=== PATIENT | male | born 1940 | race Caucasian/White ===

== ENCOUNTER 2017-07-25 08:20 | Inpatient (IN) | payer MEDICARE ==
[2017-07-25] MEDS ORDERED: SUBLIMAZE 100 MCG/2 ML IV ONE (08:30)
[2017-07-25] MEDS ORDERED: LOPRESSOR 5 MG/5 ML INJECTION IV ONE ×3 (08:32→12:21)
[2017-07-25] MEDS ORDERED: SUBLIMAZE 100 MCG/2 ML ONE (08:36)
--- NOTE | 2017-07-25 08:40 | ERPHSYRPT ---
- History of Present Illness Time Seen by Provider: 07/25/17 08:24 Source: patient, EMS Physician History: CC: fall Hx: 76 y/o patient of Dr Moeller is on coumadin and dig for afib. He fell last night around 11:30 while up to get his shower. He was finally able to get back to his chair. EMS was called this AM. He has left rib pain. He has pain in right upper leg which radiates to the testicle. No neck or back pain. Denies head injury. Has occasional nosebleeds. He has swelling. Not short of breath. No abd pain. No N/V. Pain moderate and worse with movement and aching. Timing/Duration: other (last night 11:30PM) Severity: moderate Allergies/Adverse Reactions: No Known Drug Allergies Allergy (Unverified 07/25/17 08:32) Home Medications: Digoxin 0.125 mg Tablet [Lanoxin 0.125MG TABLET] 0.125 mg PO DAILY [History] Lisinopril/Hydrochlorothiazide [Lisinopril-Hctz 10-12.5 mg Tab] 1 each PO DAILY 07/25/17 [History] Metoprolol Succinate 25 mg Xl* [Toprol-Xl 25MG Tablets] 25 mg PO BID [History] Multivit-Min/FA/Lycopen/Lutein [Centrum Silver Men Tablet] 1 each PO DAILY 07/25 [History] Topiramate [Topiramate ER] 150 mg PO TID 07/25/17 [History] Warfarin Sodium 10 mg [Coumadin 10 MG] 10 mg PO DAILY 07/25/17 [History] - Review of Systems Constitutional: Malaise, Weakness, No Fever, No Chills Eyes: No Symptoms Ears, Nose, & Throat: No Symptoms Respiratory: No Cough, No Dyspnea Cardiac: Chest Pain (left ribs), Edema, Syncope (?) Abdominal/Gastrointestinal: No Abdominal Pain, No Nausea, No Vomiting, No Diarrhea Genitourinary Symptoms: Testicle Pain (right), No Dysuria Musculoskeletal: Fall, Injury, Joint Pain (right upper leg), No Back Pain, No Neck Pain Neurological: No Focal Weakness, No Headache, No Parasthesia All Other Systems: Reviewed and Negative - Past Medical History Pertinent Past Medical History: Yes Cardiac History: Arrhythmia (afib), Hypertension - Past Surgical History Past Surgical History: Yes Gastrointestinal: Cholecystectomy - Social History Smoking Status: Former smoker Patient Lives Alone: Yes - Nursing Vital Signs Nursing Vital Signs: Initial Vital Signs Temperature 99.8 F 07/25/17 08:21 Pulse Rate 113 H 07/25/17 08:21 Respiratory Rate 16 07/25/17 08:21 Blood Pressure 133/99 07/25/17 08:21 O2 Sat by Pulse Oximetry 95 07/25/17 08:21 Pain Scale Pain Intensity 3 - Physical Exam General Appearance: alert, other (pleasant man) Eye Exam: PERRL/EOMI Ears, Nose, Throat Exam: other (dry blood on external nares) Neck Exam: normal inspection, non-tender, supple, No midline tenderness Respiratory Exam: normal breath sounds, chest tenderness (left ribs), lungs clear, No respiratory distress Cardiovascular Exam: tachycardia, irregular Gastrointestinal/Abdomen Exam: soft, No tenderness, No distention, No guarding Back Exam: normal inspection, No vertebral tenderness Extremity Exam: pedal edema, tenderness (right upper leg and right knee) Neurologic Exam: alert, oriented x 3, cooperative, 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, sensation nml, No motor deficits Skin Exam: warm, dry SpO2 Interpretation: normal SpO2: 95 Oxygen Delivery: Room Air - Course Nursing assessment & vital signs reviewed: Yes EKG Interpreted by Me: RATE ([id number]), A-fib, Left Colton Deviation, Left Bundle Branch Block Ordered Tests: Active Orders 24 hr Category Date Time Status Clean Catch Urine Specimen STAT Care 07/25/17 08:30 Active EKG-ER Only STAT Care 07/25/17 08:30 Active IV Insertion STAT Care 07/25/17 08:30 Active NPO (ED) STAT Care 07/25/17 08:30 Active Regular Diet Diet 07/25/17 Breakfast Active CHEST 1 VIEW (PORTABLE) Stat Exams 07/25/17 08:30 Completed FEMUR Stat Exams 07/25/17 08:32 Completed HEAD WITHOUT CONTRAST [CT] Stat Exams 07/25/17 08:31 Completed KNEE (3 VIEWS) Stat Exams 07/25/17 08:32 Completed PELVIS (1 OR 2 VIEWS) Stat Exams 07/25/17 08:32 Completed CBC W DIFF Stat Lab 07/25/17 08:45 Completed CK-Creatinine Phosphokinase Stat Lab 07/25/17 08:45 Completed CMP Stat Lab 07/25/17 08:45 Completed MAGNESIUM Stat Lab 07/25/17 08:45 Completed Manual Differential NC Stat Lab 07/25/17 08:45 Completed NT PRO BNP Stat Lab 07/25/17 08:45 Completed PROTIME WITH INR Stat Lab 07/25/17 08:45 Completed TROPONIN Q3H Lab 07/25/17 11:30 Ordered TROPONIN Q3H Lab 07/25/17 14:30 Ordered TROPONIN Q3H Lab 07/25/17 17:30 Ordered TROPONIN Q3H Lab 07/25/17 20:30 Ordered TROPONIN Stat Lab 07/25/17 08:45 Completed UA W/RFX UR CULTURE Stat Lab 07/25/17 09:55 Received Medication Summary Generic Name Dose Route Start Last Admin Trade Name Freq PRN Reason Stop Dose Admin Sodium Chloride 1,000 mls @ 50 mls/hr 07/25/17 08:30 07/25/17 08:42 Sodium Chloride 0.9% 1000 Ml IV 08/24/17 08:29 50 mls/hr .Q20H TRACI Administration Discontinued Medications Generic Name Dose Route Start Last Admin Trade Name Freq PRN Reason Stop Dose Admin Fentanyl Citrate 50 mcg 07/25/17 08:30 07/25/17 08:42 Sublimaze 100 Mcg/2 Ml IV 07/25/17 08:31 50 mcg STAT ONE Administration Fentanyl Citrate Confirm 07/25/17 08:36 Sublimaze 100 Mcg/2 Ml Administered 07/25/17 08:37 Dose 100 mcg .ROUTE .STK-MED ONE Metoprolol Tartrate 5 mg 07/25/17 08:32 07/25/17 08:42 Lopressor 5 Mg/5 Ml Injection IV 07/25/17 08:33 5 mg STAT ONE Administration Metoprolol Tartrate Confirm 07/25/17 08:35 Lopressor 5 Mg/5 Ml Injection Administered 07/25/17 08:36 Dose 5 mg IV .STK-MED ONE Lab/Rad Data: Laboratory Result Diagrams 07/25/17 08:45 07/25/17 08:45 Laboratory Results 07/25/17 07/25/17 07/25/17 Range/Units 08:45 08:45 08:45 WBC (4.0-10.5) K/mm3 RBC (4.1-5.6) M/mm3 Hgb (12.5-18.0) gm/dl Hct (42-50) % MCV (78-100) fl MCH (26-32) pg MCHC (32-36) g/dl RDW (11.5-14.0) % Plt Count (150-450) K/mm3 MPV (6-9.5) fl Absolute Granulocytes (1.4-6.9) Segmented Neutrophils (36.-66.) % Lymphocytes (Manual) (24-44) % Monocytes (Manual) (0.0-12.0) % Eosinophils (Manual) (0.00-3.0) % Platelet Estimate (NORMAL) RBC Morphology PT 27.8 H (8.83-12.87) SECONDS INR 2.48 (0.8-3.0) Sodium (137-145) mmol/L Potassium (3.5-5.1) mmol/L Chloride (98-107) mmol/L Carbon Dioxide (22-30) mmol/L Anion Gap (5-15) MEQ/L BUN (9-20) mg/dL Creatinine (0.66-1.25) mg/dL Estimated GFR ML/MIN Glucose (74-106) mg/dL Calcium (8.4-10.2) mg/dL Magnesium (1.6-2.3) mg/dL Total Bilirubin (0.2-1.3) mg/dL AST (17-59) U/L ALT (0-50) U/L Alkaline Phosphatase (38-126) U/L Creatine Kinase (55-170) U/L Troponin I 0.046 H* (0.000-0.034) ng/mL NT-Pro-B Natriuret Pep (0-1800) pg/mL Serum Total Protein (6.3-8.2) g/dL Albumin (3.5-5.0) g/dL Digoxin 0.4 L (0.8-1.9) ng/mL 18 07/25/17 Range/Units 08:45 08:45 WBC 9.4 (4.0-10.5) K/mm3 RBC 4.25 (4.1-5.6) M/mm3 Hgb 11.5 L (12.5-18.0) gm/dl Hct 36.4 L (42-50) % MCV 85.6 (78-100) fl MCH 27.0 (26-32) pg MCHC 31.6 L (32-36) g/dl RDW 16.8 H (11.5-14.0) % Plt Count 167 (150-450) K/mm3 MPV 10.5 H (6-9.5) fl Absolute Granulocytes 7.81 H (1.4-6.9) Segmented Neutrophils 86 H (36.-66.) % Lymphocytes (Manual) 9 L (24-44) % Monocytes (Manual) 4 (0.0-12.0) % Eosinophils (Manual) 1 (0.00-3.0) % Platelet Estimate NORMAL (NORMAL) RBC Morphology NORMAL PT (8.83-12.87) SECONDS INR (0.8-3.0) Sodium 139 (137-145) mmol/L Potassium 3.6 (3.5-5.1) mmol/L Chloride 104 (98-107) mmol/L Carbon Dioxide 23 (22-30) mmol/L Anion Gap 15.6 H (5-15) MEQ/L BUN 14 (9-20) mg/dL Creatinine 0.83 (0.66-1.25) mg/dL Estimated GFR > 60.0 ML/MIN Glucose 122 H (74-106) mg/dL Calcium 9.5 (8.4-10.2) mg/dL Magnesium 2.0 (1.6-2.3) mg/dL Total Bilirubin 1.00 (0.2-1.3) mg/dL AST 30 (17-59) U/L ALT 18 (0-50) U/L Alkaline Phosphatase 83 (38-126) U/L Creatine Kinase 550 H (55-170) U/L Troponin I (0.000-0.034) ng/mL NT-Pro-B Natriuret Pep 848 (0-1800) pg/mL Serum Total Protein 7.4 (6.3-8.2) g/dL Albumin 3.9 (3.5-5.0) g/dL Digoxin (0.8-1.9) ng/mL - Progress Progress Note: 07/25/17 08:41 He atrial fibrillation with RVR. Has not taken AM dig or metoprolol. Will given IV metoprolol. Check labs, xrays, and CT to rule out ICH. 07/25/17 09:51 CT head: Nonacute senile brain. Pelvis: Single AP pelvis demonstrates osteopenia, mild degenerative changes of both hips/lower lumbar spine, and scattered vascular calcifications. No other bony, articular, or soft tissue abnormalities. Knee: 3 views of the right knee demonstrates osteopenia and moderate tricompartmental degenerative changes. No other bony, articular, or soft tissue abnormalities. Femur: 2 views of the right femur demonstrates mild osteopenia, hip/knee degenerative changes, and faint vascular calcifications. No other bony, articular, or soft tissue abnormalities. cxr: Nonacute chest with chronic features. 07/25/17 10:43 NIH 4 due to decreased use of the right leg. Not sure if this is from stroke event or pain. No fx identified as yet. He is not a TPA candidate as he is on coumadin. PAssed swallow test and is eating a breakfast tray. Daughter at bedside. Called Dr Peters (oc) and will place in tele obs, recheck troponin and CK, and consult neuro. Discussed with .: Lorraine Will see patient in: hospital (observation) Counseled pt/family regarding: lab results, diagnosis, need for follow-up, rad results - Departure Time of Disposition: 10:44 Departure Disposition: Observation (Tele) Clinical Impression: Fall from standing, Atrial fibrillation with RVR, Elevated troponin, right leg pain and weakness Condition: Fair Critical Care Time: No Referrals: ZULEYMA MOELLER [Primary Care Provider] -
[2017-07-25] MEDS: Sodium Chloride 0.9% 1000 ML 1,000 ML IV SCH ×3 (08:42→20:26)
[2017-07-25 08:54] LABS: Granulocyte Absolute (ANC) 7.81 (1.4-6.9); Hematocrit 36.4 % (42-50); Hemoglobin 11.5 gm/dl (12.5-18.0); Mean Cell Volume 85.6 fl (78-100); Mean Corpuscular Hgb Concent. 31.6 g/dl (32-36); Mean Platelet Volume 10.5 fl (6-9.5); Platelet Count 167 K/mm3 (150-450); Red Blood Count 4.25 M/mm3 (4.1-5.6); Red Cell Distribution Width 16.8 % (11.5-14.0); White Blood Count 9.4 K/mm3 (4.0-10.5)
[2017-07-25 08:56] LABS: INR 2.48 (0.8-3.0)
[2017-07-25 09:19] LABS: ALBUMIN 3.9 g/dL (3.5-5.0); ALKALINE PHOSPHATASE 83 U/L (38-126); ANION GAP 15.6 MEQ/L (5-15); BLOOD UREA NITROGEN 14 mg/dL (9-20); CHLORIDE 104 mmol/L (98-107); CK-Creatinine Phosphokinase 550 U/L (55-170); Calcium 9.5 mg/dL (8.4-10.2); Carbon Dioxide 23 mmol/L (22-30); Creatinine 1 0.83 mg/dL (0.66-1.25); Glucose 122 mg/dL (74-106); Potassium 3.6 mmol/L (3.5-5.1); SGOT/AST 30 U/L (17-59); SGPT/ALT 18 U/L (0-50); SODIUM 139 mmol/L (137-145); Total Protein 7.4 g/dL (6.3-8.2)
[2017-07-25 09:27] LABS: NT PRO BNP 848 pg/mL (0-1800)
[2017-07-25 09:37] LABS: Eosinophil 1 % (0.00-3.0); Lymphocytes 9 % (24-44); Monocyte 4 % (0.0-12.0); Neutrophils 86 % (36.-66.); Platelet Estimate NORMAL (NORMAL); Total Cells Counted 100
--- NOTE | 2017-07-25 09:37 | XRAY ---
Indication: Status post fall. Coumadin therapy. Multiple contiguous axial images obtained through the head without contrast. Comparison: None Age-appropriate global atrophy and mild periventricular degenerative micro-ischemia bilaterally. No acute intracranial hemorrhage, abnormal extra-axial fluid collection, or mass effect. Fourth ventricle is midline without hydrocephalus. Bony calvarium intact. Visualized paranasal sinuses and mastoid air cells are clear. Impression: Nonacute senile brain. CTDI 67.41
--- NOTE | 2017-07-25 09:41 | XRAY ---
Indication: Pain following fall. Comparison: None Single AP pelvis demonstrates osteopenia, mild degenerative changes of both hips/lower lumbar spine, and scattered vascular calcifications. No other bony, articular, or soft tissue abnormalities.
--- NOTE | 2017-07-25 09:41 | XRAY ---
Indication: Pain following fall. Comparison: None 2 views of the right femur demonstrates mild osteopenia, hip/knee degenerative changes, and faint vascular calcifications. No other bony, articular, or soft tissue abnormalities.
--- NOTE | 2017-07-25 09:43 | XRAY ---
Indication: Pain following fall. Comparison: None 3 views of the right knee demonstrates osteopenia and moderate tricompartmental degenerative changes. No other bony, articular, or soft tissue abnormalities.
--- NOTE | 2017-07-25 09:45 | XRAY ---
Indication: Left-sided pain following fall. Comparison: None Portable chest is clear with incidental scattered calcified granulomas. Heart is borderline enlarged. Vascularity normal. Bony thorax intact with osteopenia, mild degenerative changes, and old right 7th rib fracture. Impression: Nonacute chest with chronic features.
[2017-07-25 11:08] LABS: Appearance HAZY (CLEAR); Bilirubin NEGATIVE (NEGATIVE); Blood 50 Ery/ul (0-5); Glucose NEGATIVE (NEGATIVE); Ketones NEGATIVE (NEGATIVE); Leukocyte Esterase NEGATIVE (NEGATIVE); Nitrite NEGATIVE (NEGATIVE); Protein,Urine Dip 30 (Negative); Urobilinogen NORMAL mg/dL (0-1)
[2017-07-25 11:09] LABS: Bacteria RARE /HPF (NEGATIVE); Epithelial Cells RARE /HPF (FEW); Hyaline Casts 0-2 /LPF (0-2); WBC 0-2 /HPF (0-5)
[2017-07-25] MEDS ORDERED: TYLENOL 325 MG PO PRN (11:17)
[2017-07-25 12:14] LABS: TROPONIN 0.05 ng/mL (0.000-0.034)
[2017-07-25] MEDS: Zestril 10 MG PO SCH ×2 (13:50→13:51)
[2017-07-25] MEDS: Lanoxin 0.125MG TABLET PO SCH (13:50)
[2017-07-25] MEDS: Toprol-Xl 25MG Tablets PO SCH ×2 (13:50→21:17)
[2017-07-25] MEDS: hydroDIURIL 25 MG PO SCH (13:51)
[2017-07-25] MEDS ORDERED: TOPIRAMATE 150 MG PO SCH (15:00)
[2017-07-25] MEDS: Topamax 100 MG PO SCH ×2 (15:51→21:17)
--- NOTE | 2017-07-25 15:57 | PCM.HP ---
History of Present Illness - Chief Complaint Chief Complaint: fall History of Present Illness: is a 76 year old male pt of Dr. Moeller in [place]. He's been c/o R leg pain, from the knee to the groin, for . Last night he went to the bathroom, turned then lost feeling in his R leg and collapsed. He drug himself on his stomach to the living room where he laid for about 2 hours. Then he pulled himself up onto the recliner and waited until 7 am to call his daughter. She came over to turn off the coffee pot and call the ambulance. Pt states when he first came in to the hospital he could not move his R foot, but now he can. PT did get him up to stand with assistance. With palpation the pain is currently about a 5/10. When he was standing on the leg the pain was much more (pt unable to give me a number). On admission pt's HR was elevated in the 130s. He religiously takes his metoprolol and digoxin but he was unable to take them this morning. He was given 5mg IV metoprolol in the ER and 5mg again on the floor, along with his home med late this morning. Currently his HR is in the 80s. After admission he had a small bump in troponin but the last number is trending down. CK was minimally elevated but also trending down. - Review of Systems Cardiac: Other (pain in L anterior ribs with moving in the bed. states he hit them when he fell) Genitourinary Symptoms: Hesitancy (longterm) Musculoskeletal: Arthralgias, Joint Pain (chronic L and R knee pain) Neurological: Focal Weakness, Parasthesia (numbness in RLE with fall) Psychological: No Depression, No Suicidal Ideations All Other Systems: Reviewed and Negative Medications & Allergies Home Medications: Home Medication List Digoxin 0.125 mg Tablet [Lanoxin 0.125MG TABLET] 0.125 mg PO DAILY [History Confirmed 07/25/17] Lisinopril/Hydrochlorothiazide [Lisinopril-Hctz 10-12.5 mg Tab] 1 each PO DAILY 07/25/17 [History Confirmed 07/25/17] Metoprolol Succinate 25 mg Xl* [Toprol-Xl 25MG Tablets] 25 mg PO BID [History Confirmed 07/25/17] Multivit-Min/FA/Lycopen/Lutein [Centrum Silver Men Tablet] 1 each PO DAILY 07/25 [History Confirmed 07/25/17] Topiramate [Topiramate ER] 150 mg PO TID 07/25/17 [History Confirmed 07/25/17] Warfarin Sodium 10 mg [Coumadin 10 MG] 10 mg PO DAILY 07/25/17 [History Confirmed 07/25/17] Allergies/Adverse Reactions: Allergies Allergy/AdvReac Type Severity Reaction Status Date / Time No Known Drug Allergies Allergy Unverified 07/25/17 08:32 - Past Medical History Past Medical History: Yes ENT History: Cataracts Cardiac History: Arrhythmia, Hypertension GI Medical History: Gallbladder Disease History: Other - Past Surgical History Past Surgical History: Yes GI Surgical History: Cholecystectomy Musculskeletal Surgical Hx: Orthopedic Surgery - Social History Smoking Status: Former smoker Exposure to second hand smoke: No Alcohol: None Drug Use: none - Physical Exam Vital Signs: Vital Signs - 24 hr Temp Pulse Resp BP BP Pulse Ox 07/25/17 13:50 91 H 129/67 07/25/17 12:01 99.8 F 101 H 125/81 95 07/25/17 10:45 95 07/25/17 10:31 101 H 18 125/81 96 07/25/17 09:43 78 16 120/67 96 07/25/17 08:21 99.8 F 113 H 16 133/99 95 General Appearance: no apparent distress, alert Neurologic Exam: oriented x 3, cooperative, other (active motion bilat feet. motion in RLE limited d/t knee pain) Eye Exam: eyes nml inspection Ears, Nose, Throat Exam: moist mucous membranes Neck Exam: normal inspection, non-tender, supple, No lymphadenopathy Respiratory Exam: normal breath sounds, lungs clear, No crackles/rales, No rhonchi, No wheezing Cardiovascular Exam: regular rate/rhythm, normal heart sounds, No murmur Gastrointestinal/Abdomen Exam: soft, normal bowel sounds, distention (mild), No tenderness, No mass, No guarding Back Exam: normal inspection, No CVA tenderness Extremity Exam: other (R knee generalized edema just superior to knee with tenderness to palpation. nttp along medial and lateral joint lines.), No pedal edema Skin Exam: normal color, warm, dry, No rash Results - Labs Lab/Micro Results: Lab Results-Last 24 Hours 07/25/17 07/25/17 Range/Units 11:31 14:30 Creatine Kinase 518 H (55-170) U/L Troponin I 0.050 H* 0.043 H* (0.000-0.034) ng/mL Assessment/Plan (1) Leg pain Current Visit: Yes Status: Acute Qualifiers: Laterality: right Qualified Code(s): M79.604 - Pain in right leg Assessment & Plan: Xrays wnl. Will check MRI lumbar spine. PT consulted on pt. This has improved since admission. Pt needs to be able to walk in order to d/c home and he agrees. (2) Paresthesia of right leg Current Visit: Yes Status: Acute Assessment & Plan: MRI to be done, likely tomorrow morning. Teleneurology consult ordered for after MRI. Code(s): R20.2 - PARESTHESIA OF SKIN (3) Tremor Current Visit: Yes Status: Acute Assessment & Plan: Chronic; sees Dr. Roldan yearly and Parkinson's has been ruled out. Code(s): R25.1 - TREMOR, UNSPECIFIED (4) Atrial fibrillation with RVR Current Visit: Yes Status: Acute Assessment & Plan: Sees cardiology group at [place] (down from [place]) regularly. With 2 doses IV metoprolol and back on home meds, his rate is controlled. Code(s): I48.91 - UNSPECIFIED ATRIAL FIBRILLATION (5) Elevated troponin Current Visit: Yes Status: Acute Assessment & Plan: Small bump after admission, likely due to the RVR (or possibly related to lying on the ground for several hours). Code(s): R74.8 - ABNORMAL LEVELS OF OTHER SERUM ENZYMES (6) Fall from standing Current Visit: Yes Status: Acute Qualifiers: Encounter type: initial encounter Qualified Code(s): W19.XXXA - Unspecified fall, initial encounter Code(s): W19.XXXA - UNSPECIFIED FALL, INITIAL ENCOUNTER
[2017-07-25] MEDS ORDERED: Coumadin 10 MG PO SCH (18:00)
[2017-07-26 05:57] LABS: Granulocyte Absolute (ANC) 4.69 (1.4-6.9); Hematocrit 34.3 % (42-50); Hemoglobin 10.8 gm/dl (12.5-18.0); Mean Cell Volume 86.6 fl (78-100); Mean Corpuscular Hgb Concent. 31.5 g/dl (32-36); Mean Platelet Volume 10.7 fl (6-9.5); Platelet Count 147 K/mm3 (150-450); Red Blood Count 3.96 M/mm3 (4.1-5.6); Red Cell Distribution Width 17.1 % (11.5-14.0); White Blood Count 6.5 K/mm3 (4.0-10.5)
[2017-07-26 06:00] LABS: Mean Corpuscular Hemoglobin 27.2 pg (26-32)
[2017-07-26 06:18] LABS: ALBUMIN 3.5 g/dL (3.5-5.0); ALKALINE PHOSPHATASE 75 U/L (38-126); BLOOD UREA NITROGEN 13 mg/dL (9-20); CHLORIDE 108 mmol/L (98-107); CK-Creatinine Phosphokinase 516 U/L (55-170); Calcium 8.8 mg/dL (8.4-10.2); Carbon Dioxide 20 mmol/L (22-30); Creatinine 1 0.76 mg/dL (0.66-1.25); Glucose 98 mg/dL (74-106); Potassium 3.7 mmol/L (3.5-5.1); SGOT/AST 31 U/L (17-59); SGPT/ALT 16 U/L (0-50); SODIUM 137 mmol/L (137-145); Total Protein 6.6 g/dL (6.3-8.2)
[2017-07-26] MEDS: Sodium Chloride 0.9% 1000 ML 1,000 ML IV SCH (06:30)
[2017-07-26 06:54] LABS: Eosinophil 3 % (0.00-3.0); Lymphocytes 15 % (24-44); Monocyte 9 % (0.0-12.0); Neutrophils 73 % (36.-66.); Platelet Estimate NORMAL (NORMAL); Total Cells Counted 100
--- NOTE | 2017-07-26 08:58 | PCM.NOTE ---
Date and Time: 07/26/17 0856 Subjective Assessment: patient reports improvement, able to lift the right leg today and wasn't initially. denies chest pain or shortness of breath. scheduled for MRI l-spine this am. Objective Exam General Appearance: no apparent distress, alert Neurologic Exam: other (mild weakness to right leg, strength 4/5) Respiratory Exam: normal breath sounds, lungs clear, No respiratory distress Cardiovascular Exam: regular rate/rhythm Gastrointestinal/Abdomen Exam: soft, No tenderness, No mass OBJECTIVE DATA Vital Signs: Vital Signs - 24 hr Temp Pulse Resp BP BP Pulse Ox 07/26/17 07:05 97.8 F 74 20 130/78 95 07/26/17 04:00 98.4 F 72 18 106/57 97 07/26/17 00:00 98.0 F 72 20 114/58 96 07/25/17 19:55 99.2 F 76 18 121/67 96 07/25/17 16:00 99.2 F 92 H 18 143/71 96 07/25/17 13:50 91 H 129/67 07/25/17 12:01 99.8 F 101 H 125/81 95 07/25/17 10:45 95 07/25/17 10:31 101 H 18 125/81 96 07/25/17 09:43 78 16 120/67 96 Oxygen-Last 24 hours O2 Percentage 4 Liters = 36% Pain Assessment - Last Documented Pain Intensity 3 Pain Scale Used 0-10 Pain Scale Intake and Output: Intake & Output 07/23/17 07/24/17 07/25/17 07/26/17 11:59 11:59 11:59 11:59 Intake Total 2831 Output Total 1080 Balance 1751 Weight 93.44 kg Lab Results: Lab Results-Last 24 Hours 07/25/17 07/25/17 07/25/17 Range/Units 11:31 14:30 17:45 WBC (4.0-10.5) K/mm3 RBC (4.1-5.6) M/mm3 Hgb (12.5-18.0) gm/dl Hct (42-50) % MCV (78-100) fl MCH (26-32) pg MCHC (32-36) g/dl RDW (11.5-14.0) % Plt Count (150-450) K/mm3 MPV (6-9.5) fl Absolute Granulocytes (1.4-6.9) Segmented Neutrophils (36.-66.) % Lymphocytes (Manual) (24-44) % Monocytes (Manual) (0.0-12.0) % Eosinophils (Manual) (0.00-3.0) % Platelet Estimate (NORMAL) RBC Morphology Sodium (137-145) mmol/L Potassium (3.5-5.1) mmol/L Chloride (98-107) mmol/L Carbon Dioxide (22-30) mmol/L Anion Gap (5-15) MEQ/L BUN (9-20) mg/dL Creatinine (0.66-1.25) mg/dL Estimated GFR ML/MIN Glucose (74-106) mg/dL Calcium (8.4-10.2) mg/dL Total Bilirubin (0.2-1.3) mg/dL AST (17-59) U/L ALT (0-50) U/L Alkaline Phosphatase (38-126) U/L Creatine Kinase 518 H (55-170) U/L Troponin I 0.050 H* 0.043 H* 0.043 H* (0.000-0.034) ng/mL Serum Total Protein (6.3-8.2) g/dL Albumin (3.5-5.0) g/dL 07/25/17 07/26/17 07/26/17 Range/Units 20:15 05:35 05:35 WBC 6.5 (4.0-10.5) K/mm3 RBC 3.96 L (4.1-5.6) M/mm3 Hgb 10.8 L (12.5-18.0) gm/dl Hct 34.3 L (42-50) % MCV 86.6 (78-100) fl MCH 27.2 (26-32) pg MCHC 31.5 L (32-36) g/dl RDW 17.1 H (11.5-14.0) % Plt Count 147 L (150-450) K/mm3 MPV 10.7 H (6-9.5) fl Absolute Granulocytes 4.69 (1.4-6.9) Segmented Neutrophils 73 H (36.-66.) % Lymphocytes (Manual) 15 L (24-44) % Monocytes (Manual) 9 (0.0-12.0) % Eosinophils (Manual) 3 (0.00-3.0) % Platelet Estimate NORMAL (NORMAL) RBC Morphology NORMAL Sodium 137 (137-145) mmol/L Potassium 3.7 (3.5-5.1) mmol/L Chloride 108 H (98-107) mmol/L Carbon Dioxide 20 L (22-30) mmol/L Anion Gap 13.0 (5-15) MEQ/L BUN 13 (9-20) mg/dL Creatinine 0.76 (0.66-1.25) mg/dL Estimated GFR > 60.0 ML/MIN Glucose 98 (74-106) mg/dL Calcium 8.8 (8.4-10.2) mg/dL Total Bilirubin 0.70 (0.2-1.3) mg/dL AST 31 (17-59) U/L ALT 16 (0-50) U/L Alkaline Phosphatase 75 (38-126) U/L Creatine Kinase 516 H (55-170) U/L Troponin I 0.043 H* (0.000-0.034) ng/mL Serum Total Protein 6.6 (6.3-8.2) g/dL Albumin 3.5 (3.5-5.0) g/dL 07/26/17 Range/Units 05:35 WBC (4.0-10.5) K/mm3 RBC (4.1-5.6) M/mm3 Hgb (12.5-18.0) gm/dl Hct (42-50) % MCV (78-100) fl MCH (26-32) pg MCHC (32-36) g/dl RDW (11.5-14.0) % Plt Count (150-450) K/mm3 MPV (6-9.5) fl Absolute Granulocytes (1.4-6.9) Segmented Neutrophils (36.-66.) % Lymphocytes (Manual) (24-44) % Monocytes (Manual) (0.0-12.0) % Eosinophils (Manual) (0.00-3.0) % Platelet Estimate (NORMAL) RBC Morphology Sodium (137-145) mmol/L Potassium (3.5-5.1) mmol/L Chloride (98-107) mmol/L Carbon Dioxide (22-30) mmol/L Anion Gap (5-15) MEQ/L BUN (9-20) mg/dL Creatinine (0.66-1.25) mg/dL Estimated GFR ML/MIN Glucose (74-106) mg/dL Calcium (8.4-10.2) mg/dL Total Bilirubin (0.2-1.3) mg/dL AST (17-59) U/L ALT (0-50) U/L Alkaline Phosphatase (38-126) U/L Creatine Kinase (55-170) U/L Troponin I 0.031 (0.000-0.034) ng/mL Serum Total Protein (6.3-8.2) g/dL Albumin (3.5-5.0) g/dL Radiology Exams: Radiology Procedures Category Date Time Status MRI L-SPINE WITHOUT CONTRAST [MRI] Routine Exams 07/26/17 16:02 Ordered Assessment/Plan (1) Paresthesia of right leg Current Visit: Yes Status: Acute Assessment & Plan: MRI L-spine pending, will get up out of bed and attempt to ambulate this am and see how he does. if MRI shows nothing acute and able to ambulate may be able to discharge later today or tomorrow. if unable to ambulate may need to consider rehab stay Code(s): R20.2 - PARESTHESIA OF SKIN (2) Atrial fibrillation with RVR Current Visit: Yes Status: Acute Assessment & Plan: rate controlled at this time Code(s): I48.91 - UNSPECIFIED ATRIAL FIBRILLATION (3) Fall from standing Current Visit: Yes Status: Acute Qualifiers: Encounter type: initial encounter Qualified Code(s): W19.XXXA - Unspecified fall, initial encounter Code(s): W19.XXXA - UNSPECIFIED FALL, INITIAL ENCOUNTER (4) Leg pain Current Visit: Yes Status: Acute Qualifiers: Laterality: right Qualified Code(s): M79.604 - Pain in right leg
[2017-07-26] MEDS ORDERED: NON-FORMULARY ITEM (Lisinopril/Hydrochlorothiazide [Lisinopril-Hctz 10-12.5 Mg Tab] 1 EACH PO SCH (10:00)
[2017-07-26] MEDS: Lanoxin 0.125MG TABLET PO SCH (10:19)
[2017-07-26] MEDS: Topamax 100 MG PO SCH (10:20)
[2017-07-26] MEDS: Toprol-Xl 25MG Tablets PO SCH (10:20)
[2017-07-26] MEDS: hydroDIURIL 25 MG PO SCH (10:20)
[2017-07-26] MEDS: Zestril 10 MG PO SCH (10:20)
--- NOTE | 2017-07-26 10:33 | XRAY ---
Indication: Right leg weakness. Status post fall. Sagittal and axial MRI lumbar spine performed without contrast using T1 and T2 weighted sequences. Comparison: None No prior lumbar exams for counting purposes. 5 lumbar segments will be assumed. Sagittal MRI images demonstrates normal lumbar lordosis with mild levoscoliosis centered at L3. Multilevel degenerative disc desiccation signal with mild L3-L4 disc space narrowing. T10-L2 vertebral hemangiomas. No acute fracture, subluxation, or abnormal bone marrow signal. Conus medullaris terminates at the inferior L1 level. Sagittal images through the T12-L2 levels are unremarkable. Axial images at the L2-L3 level demonstrates minimal annular disc bulge minimally effacing the thecal sac and producing minimal bilateral foraminal narrowing. No disc herniation or canal stenosis. Mild bilateral degenerative facet and ligament flavum hypertrophy. At the L3-L4 level, there is bilateral foraminal narrowing due to mild broad-based disc bulge. No central disc herniation or canal stenosis. Mild bilateral degenerative facet and ligament flavum hypertrophy. At the L4-L5 level, there is mild annular disc bulge minimally effacing the thecal sac and producing mild bilateral foraminal stenosis without exiting nerve root impingement.. No disc herniation or canal stenosis. Moderate bilateral degenerative facet hypertrophy. At the L5-S1 level, there is left foraminal stenosis with minimal exiting L5 nerve root impingement due to broad-based disc bulge. No disc herniation or canal stenosis. Moderate bilateral degenerative facet hypertrophy. Partially visualized bilateral renal cysts, largest on the left measuring 2.6 cm. Impression: 1. Multilevel degenerative disc disease detailed level by level and mild levoscoliosis. 2. Remaining MRI lumbar spine negative for disc herniation or spinal canal stenosis. 3. T10-L1 vertebral hemangiomas. 4. Partially visualized bilateral renal cysts.
[2017-07-26 12:20] VITALS: BP 109/57; PULSE 78; O2SAT 97
--- NOTE | 2017-07-30 13:38 | DS ---
ADMISSION DIAGNOSES: 1) Right leg pain. 2) Paresthesia of right leg. 3) Tremors. 4) Atrial fibrillation with rapid ventricular response. 5) Elevated troponin. DISCHARGE DIAGNOSES: 1) RIGHT LEG PAIN. 2) PARESTHESIA OF RIGHT LEG. 3) TREMORS. 4) ATRIAL FIBRILLATION WITH RAPID VENTRICULAR RESPONSE. 5) ELEVATED TROPONIN. HOSPITAL COURSE: This is a 76 year-old male patient who normally sees Dr. Lino Moeller as part of the [facility] system. He was admitted by Dr. Peters on 07/25/2017 with complaints of right leg pain and paresthesia in the right leg. He was apparently weak in the leg and unable to walk yesterday. When he came in he had a chronic tremor for which he sees Dr. Roldan on a regular basis and treated. He also has a history of atrial fibrillation and sees care group in [place]. He was given IV metoprolol due to atrial fibrillation with rapid ventricular rate on admission and then resumed on his home medications. His rate has been controlled. He was prescribed digoxin 0.125 mg daily as well as metoprolol succinate 25 mg daily. He is also on Coumadin in which he was also continued. He had a head CT on arrival which showed a nonacute senile brain with nothing acute. He did have lumbar spine MRI which showed some degenerative changes on 07/26/2017. He felt as though he was back to his baseline and was able to ambulate to and from his bathroom without any difficulty. He requested discharge on 07/26/2017 after the MRI was conducted and expressed a desire to do some therapy due to recent falls at [facility] which is being coordinated upon discharge. DISCHARGE EXAM: He is alert and in no apparent distress. VITAL SIGNS: Temperature 98F, pulse 78, respiratory rate 20, blood pressure 109/57. Oxygen saturations 97% on room air. International normalized ratio on arrival was 2.48. HEART: Irregularly irregular with rate controlled. NEUROLOGIC: Cranial nerves II-XII were intact. No gross deficits to bilateral upper extremity, had some mild weakness to right lower extremity which is essentially symmetrical, left lower extremity has some mild weakness and deconditioning. Sensation appears to be intact. Knee jerk is 1 to 2+ bilateral lower extremities. SKIN: He has no skin changes. ASSESSMENT: 1) Right leg pain and weakness. Work up has been negative. The patient is ambulatory and seem to be doing well at this time. I recommend that he has therapy upon discharge as requested at [facility] and have him follow up with his neurologist, Dr. Roldan, for further evaluation. Transient ischemic attack is certainly in the differential at this time. He is therapeutic on his international normalized ratio with his history of atrial fibrillation. 2) Atrial fibrillation with rapid ventricular response: His rate is well controlled on his home medications. I have made no change to his digoxin or his anticoagulant and continue Toprol for rate control and he can follow up with cardiology. 3) Elevation of troponin: He had minimally elevated troponin on arrival 0.046 and repeat was 0.031. He has had no chest pain or shortness of breath complaints during his stay so this is likely attributable to his rapid ventricular response on arrival and this resolved nicely. DISCHARGE MEDICATIONS: Digoxin 0.125 mg daily, lisinopril/hydrochlorothiazide 10/12.5 mg daily, Toprol XL 25 mg p.o. b.i.d., multivitamin, topiramate 150 mg p.o. t.i.d. and warfarin 10 mg daily. DISCHARGE FOLLOW UP: He is instructed to follow up with Dr. Moeller as well as Dr. Roldan and the care group for cardiology.
== END 2017-07-26 13:27 | disposition home or self-care (01) | DRG 556 ==
LOC: ED 08:20 → MED SURG 11:05 → OBSVTOIN 15:52
PROVIDERS: ADMIT Family Medicine; ATTEND Family Medicine
DX: M79.604 Pain in right leg (principal); R20.2 Paresthesia of skin; R25.1 Tremor, unspecified; W19.XXXA Unspecified fall, initial encounter; I48.91 Unspecified atrial fibrillation; R74.8 Abnormal levels of other serum enzymes; M25.562 Pain in left knee; M25.561 Pain in right knee; G89.29 Other chronic pain; F45.42 Pain disorder with related psychological factors; Z79.01 Long term (current) use of anticoagulants; K82.9 Disease of gallbladder, unspecified; Z74.8 Other problems related to care provider dependency; R53.1 Weakness; I10 Essential (primary) hypertension; M85.80 Other specified disorders of bone density and structure, unspecified site; Z79.899 Other long term (current) drug therapy; Z72.0 Tobacco use
CPT/HCPCS: 36415; 70450; 71045; 72148; 72170; 73552; 73562; 80053; 80162; 81000; 82550; 83735; 83880; 84484; 85025; 85610; 87086; 93005; 96360; 96361; 96374; 96375; 99285; J3010; A9270-GY

== ENCOUNTER 2018-02-28 07:38 | Observation (INO) | payer MEDICARE ==
[2018-02-28] MEDS ORDERED: TYLENOL EXTRA STRENGTH 500 MG (07:58)
[2018-02-28] MEDS ORDERED: Sodium Chloride 0.9% 1000 ML 1,000 ML (07:58)
[2018-02-28] MEDS: Sodium Chloride 0.9% 1000 ML 1,000 ML IV ×2 (07:59→11:06)
[2018-02-28] MEDS: TYLENOL EXTRA STRENGTH 500 MG PO (08:00)
[2018-02-28 08:04] LABS: Hematocrit 33.6 % (42-50); Hemoglobin 10.3 gm/dl (12.5-18.0); Mean Cell Volume 84.6 fl (78-100); Mean Corpuscular Hemoglobin 25.9 pg (26-32); Mean Corpuscular Hgb Concent. 30.7 g/dl (32-36); Mean Platelet Volume 8.7 fl (6-9.5); Platelet Count 317 K/mm3 (150-450); Red Blood Count 3.97 M/mm3 (4.1-5.6); Red Cell Distribution Width 14.9 % (11.5-14.0)
[2018-02-28 08:05] LABS: ADD MANUAL DIFF? YES (NO)
[2018-02-28 08:24] LABS: BAND 7 % (0.0-2.0); Lymphocytes 5 % (24-44); Monocyte 7 % (0.0-12.0); Neutrophils 81 % (36.-66.); Platelet Estimate NORMAL (NORMAL); Poikilocytosis 1+; Total Cells Counted 100
[2018-02-28 08:27] LABS: Granulocyte Absolute (ANC) 6.2 (1.4-6.9)
[2018-02-28 08:28] LABS: INR 4.29 (0.8-3.0)
[2018-02-28 08:28] LABS: PROTIME 50.6 SECONDS (8.83-12.87)
[2018-02-28 08:37] LABS: ALBUMIN 3.8 g/dL (3.5-5.0); ALKALINE PHOSPHATASE 177 U/L (38-126); ANION GAP 14.1 MEQ/L (5-15); BLOOD UREA NITROGEN 14 mg/dL (9-20); CHLORIDE 106 mmol/L (98-107); CK-Creatinine Phosphokinase 99 U/L (55-170); Calcium 9.2 mg/dL (8.4-10.2); Carbon Dioxide 23 mmol/L (22-30); Creatinine 1 0.76 mg/dL (0.66-1.25); EST GLOMERULAR FILTRATION RATE > 60.0 ML/MIN; Glucose 113 mg/dL (74-106); Potassium 3.8 mmol/L (3.5-5.1); SGOT/AST 23 U/L (17-59); SGPT/ALT 20 U/L (0-50); SODIUM 139 mmol/L (137-145); Total Protein 7.4 g/dL (6.3-8.2)
[2018-02-28] MEDS ORDERED: SUBLIMAZE 100 MCG/2 ML (09:00)
[2018-02-28] MEDS: SUBLIMAZE 100 MCG/2 ML IV ×2 (09:02→18:10)
[2018-02-28] MEDS: Toprol-Xl 25MG Tablets PO ×2 (13:48→21:51)
[2018-02-28] MEDS: TYLENOL 325 MG PO (15:00)
[2018-02-28 15:37] LABS: TROPONIN 0.021 ng/mL (0.000-0.034)
[2018-02-28] MEDS ORDERED: TYLENOL EXTRA STRENGTH 500 MG PO (16:02)
[2018-02-28] MEDS: ULTRAM 50 MG PO (16:51)
[2018-02-28 17:53] LABS: TROPONIN 0.022 ng/mL (0.000-0.034)
[2018-02-28 18:59] LABS: Appearance CLOUDY (CLEAR); Bilirubin NEGATIVE (NEGATIVE); Blood MODERATE Ery/ul (0-5); Glucose NEGATIVE (NEGATIVE); Ketones NEGATIVE (NEGATIVE); Leukocyte Esterase NEGATIVE (NEGATIVE); Mucus SLIGHT /HPF (NEGATIVE); Nitrite NEGATIVE (NEGATIVE); Protein,Urine Dip 30 (Negative); RBC 26-50 /HPF (0-2); Specific Gravity 1.025 (1.005-1.025); Urobilinogen 4 mg/dL (0-1)
[2018-02-28 19:02] LABS: Bacteria NONE SEEN /HPF (NEGATIVE)
[2018-02-28] MEDS: Topamax 100 MG PO (21:37)
[2018-02-28] MEDS ORDERED: Lopressor 50 MG (21:49)
[2018-02-28] MEDS ORDERED: Toprol-Xl 25MG Tablets PO (22:00)
[2018-03-01] MEDS: SUBLIMAZE 100 MCG/2 ML IV ×3 (03:23→21:57)
[2018-03-01 05:50] LABS: INR 3.62 (0.8-3.0)
[2018-03-01 05:50] LABS: PROTIME 42.6 SECONDS (8.83-12.87)
[2018-03-01] MEDS: hydroDIURIL 25 MG PO (08:31)
[2018-03-01] MEDS: THERAGRAN MULTIVITAMIN PO (08:31)
[2018-03-01] MEDS: Topamax 100 MG PO ×3 (08:31→21:56)
[2018-03-01] MEDS: Zestril 10 MG PO (08:31)
[2018-03-01] MEDS: Toprol Xl 50 MG PO ×2 (08:31→21:57)
[2018-03-01] MEDS ORDERED: NON-FORMULARY ITEM (Lisinopril/Hydrochlorothiazide [Lisinopril-Hctz 10-12.5 Mg Tab] 1 EACH PO (10:00)
[2018-03-01] MEDS ORDERED: LYCOPEN PO (10:00)
[2018-03-01] MEDS ORDERED: MULTIVIT MIN PO (10:00)
[2018-03-01] MEDS ORDERED: [UNRECOGNIZED DRUG - OTHER] PO (10:00)
[2018-03-01] MEDS ORDERED: LUTEIN PO (10:00)
[2018-03-02] MEDS: SUBLIMAZE 100 MCG/2 ML IV ×3 (01:57→12:45)
[2018-03-02 06:10] LABS: INR 1.93 (0.8-3.0)
[2018-03-02 06:10] LABS: PROTIME 22.6 SECONDS (8.83-12.87)
[2018-03-02] MEDS: Topamax 100 MG PO (08:31)
[2018-03-02] MEDS: THERAGRAN MULTIVITAMIN PO (08:32)
[2018-03-02] MEDS: hydroDIURIL 25 MG PO (08:32)
[2018-03-02] MEDS: Zestril 10 MG PO (08:32)
[2018-03-02] MEDS: Toprol Xl 50 MG PO (08:32)
[2018-03-02] MEDS: Coumadin 5 MG PO (08:36)
== END 2018-03-02 13:10 | disposition home health service (06) ==
LOC: ED 07:38 → MED SURG 10:31
CPT/HCPCS: 36415; 71045; 73521; 73562; 80053; 81001; 82550; 84484; 85025; 85610; 87086; 93005; 96360; 96374; 97161-GP; 99285; J3010